=== PATIENT | male | born 1965 | race Two or more races ===

== ENCOUNTER 2019-09-19 10:56 | Outpatient (RCR) | payer MEDICARE, OTHER | END 2019-09-29 | disposition home or self-care (01) | LOC: WCC 10:56 | DX: T86.828 Other complications of skin graft (allograft) (autograft) (principal); E11.621 Type 2 diabetes mellitus with foot ulcer; L97.522 Non-pressure chronic ulcer of other part of left foot with fat layer exposed; L98.495 Non-pressure chronic ulcer of skin of other sites with muscle involvement without evidence of necrosis; E11.52 Type 2 diabetes mellitus with diabetic peripheral angiopathy with gangrene; I96 Gangrene, not elsewhere classified; Z89.432 Acquired absence of left foot; Z89.022 Acquired absence of left finger(s); I12.0 Hypertensive chronic kidney disease with stage 5 chronic kidney disease or end stage renal disease; E11.22 Type 2 diabetes mellitus with diabetic chronic kidney disease; N18.6 End stage renal disease | CPT/HCPCS: 11042; 11043; 82962; G0277 ==

== ENCOUNTER 2019-09-19 12:42 | Outpatient (CLI) | payer MEDICARE, OTHER ==
--- NOTE | 2019-09-19 15:42 | Diagnostic Imaging Report ---
Indication: Cough Technique: One view of the chest Comparison: none Findings: Lungs and pleural spaces are clear. Heart size is normal. Impression: No acute process
== END 2019-09-19 14:42 | disposition home or self-care (01) ==
LOC: RAD 12:42
DX: R05 Cough (principal); E11.9 Type 2 diabetes mellitus without complications
CPT/HCPCS: 36415; 71045; 83036

== ENCOUNTER 2019-09-30 08:51 | Outpatient (RCR) | payer MEDICARE, OTHER ==
[~2019-09-30] VITALS: Ht 165.1 cm; Wt 68.0 kg
[2019-10-07] MEDS ORDERED: Lidocaine 2% MPF 5ml Vial INJ ONE (17:00)
[2019-10-12] MEDS ORDERED: Lidocaine 2% MPF 5ml Vial INJ ONE (10:15)
== END 2019-10-30 | disposition home or self-care (01) ==
LOC: WCC 08:51
DX: T86.828 Other complications of skin graft (allograft) (autograft) (principal); E11.621 Type 2 diabetes mellitus with foot ulcer; L97.522 Non-pressure chronic ulcer of other part of left foot with fat layer exposed; L98.495 Non-pressure chronic ulcer of skin of other sites with muscle involvement without evidence of necrosis; E11.52 Type 2 diabetes mellitus with diabetic peripheral angiopathy with gangrene; I96 Gangrene, not elsewhere classified; Z89.432 Acquired absence of left foot; Z89.022 Acquired absence of left finger(s); I12.0 Hypertensive chronic kidney disease with stage 5 chronic kidney disease or end stage renal disease; E11.22 Type 2 diabetes mellitus with diabetic chronic kidney disease; N18.6 End stage renal disease; L97.525 Non-pressure chronic ulcer of other part of left foot with muscle involvement without evidence of necrosis; L98.496 Non-pressure chronic ulcer of skin of other sites with bone involvement without evidence of necrosis
CPT/HCPCS: 11043; 11044; 15275; 82962; G0277; G0463; Q4106